=== PATIENT | female | born 2000 | race Caucasian/White ===

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

== ENCOUNTER 2020-08-30 01:28 | Inpatient (IN) | payer BC, MEDICAID ==
[2020-08-30] MEDS ORDERED: Lidocaine 1% 50 ML MDV INJECT PRN (02:34)
[2020-08-30] MEDS ORDERED: Sodium Chloride 0.9% 2.5 ML Syringe FLUSH PRN (02:34)
[2020-08-30] MEDS ORDERED: Tranexamic Acid 1,000 MG in Sodium Chloride 0.9% 100 ML IV PRN (02:34)
[2020-08-30] MEDS ORDERED: Sodium Chloride 0.9% 10 ML Syringe FLUSH PRN (02:34)
[2020-08-30] MEDS ORDERED: Carboprost Tromethamine 250 MCG/1 ML Amp IM PRN (02:34)
[2020-08-30] MEDS ORDERED: Butorphanol 1 MG/ML SDV IVPUSH PRN (02:34)
[2020-08-30] MEDS ORDERED: Water For Irrigation,Sterile 1,000 ML Container IRR PRN (02:34)
[2020-08-30] MEDS ORDERED: Methylergonovine 0.2 MG/1 ML Amp IM PRN (02:34)
[2020-08-30] MEDS ORDERED: Misoprostol 200 MCG Tab PO PRN (02:34)
[2020-08-30] MEDS ORDERED: Nalbuphine 10 MG/1 ML Vial IVPUSH PRN (02:34)
[2020-08-30] MEDS ORDERED: Sodium Chloride 0.9% 10 ML SDV IV PRN (02:34)
[2020-08-30] MEDS ORDERED: Oxytocin/0.9 % Sodium Chloride 30 UNIT/500 ML BAG IV SCH (02:45)
[2020-08-30] MEDS: Lactated Ringers 1,000 ML IV SCH ×3 (07:20→10:05)
--- NOTE | 2020-08-30 09:33 | PCM.PREANE ---
Preanesthetic Assessment - Procedure Proposed Procedure: Intrathecal analgesia. - Anesthesia/Transfusion/Family Hx Anesthesia History: Prior Anesthesia Without Reaction Family History of Anesthesia Reaction: No - Review of Systems General: No Symptoms Pulmonary: No Symptoms Cardiovascular: No Symptoms Gastrointestinal: No Symptoms Neurological: No Symptoms Other: Reports: Anxiety - Physical Assessment NPO Status Date: 08/30/20 NPO Status Time: 09:32 (Clear liquids) Height: 1.57 m Weight: 67.132 kg ASA Class: 2 Mental Status: Alert & Oriented x3 Airway Class: Mallampati = 1 Dentition: Reports: Normal Dentition ROM/Head Extension: Full Lungs: Clear to Auscultation Cardiovascular: Regular Rate - Lab Values: Laboratory Last Values WBC 10.01 K/uL (4.0-11.0) 08/30/20 02:14 RBC 4.76 M/uL (4.30-5.90) 08/30/20 02:14 Hgb 14.1 g/dL (12.0-16.0) 08/30/20 02:14 Hct 41.8 % (36.0-46.0) 08/30/20 02:14 MCV 87.8 fL (80.0-98.0) 08/30/20 02:14 MCH 29.6 pg (27.0-32.0) 08/30/20 02:14 MCHC 33.7 g/dL (31.0-37.0) 08/30/20 02:14 RDW Std Deviation 42.6 fl (28.0-62.0) 08/30/20 02:14 RDW Coeff of Eran 13 % (11.0-15.0) 08/30/20 02:14 Plt Count 286 K/uL (150-400) 08/30/20 02:14 MPV 10.50 fL (7.40-12.00) 08/30/20 02:14 Nucleated RBC % 0.0 /100WBC 08/30/20 02:14 Nucleated RBCs # 0 K/uL 08/30/20 02:14 SARS-CoV-2 RNA (EB) POSITIVE (NEGATIVE) H 08/30/20 02:18 Blood Type O POSITIVE 08/30/20 02:14 Antibody Screen NEGATIVE 08/30/20 02:14 - Allergies Allergies/Adverse Reactions: Allergies Allergy/AdvReac Type Severity Reaction Status Date / Time amoxicillin Allergy Rash Verified 05/21/19 16:30 ceftriaxone sodium Allergy Rash Verified 05/21/19 16:30 [From Rocephin] - Blood Blood Available: No Product(s) Available: None - Anesthesia Plan Pre-Op Medication Ordered: None - Acknowledgements Anesthesia Type Planned: Spinal Pt an Appropriate Candidate for the Planned Anesthesia: Yes Alternatives and Risks of Anesthesia Discussed w Pt/Guardian: Yes Pt/Guardian Understands and Agrees with Anesthesia Plan: Yes Additional Comments: Discussed. ? answered. Accepts. PreAnesthesia Questionnaire - Past Health History Medical/Surgical History: Denies Medical/Surgical History HEENT History: Reports: None Cardiovascular History: Reports: None Respiratory History: Reports: None Gastrointestinal History: Reports: None Genitourinary History: Reports: None ACCREDITATION MANAGER History: Reports: None Musculoskeletal History: Reports: None Neurological History: Reports: Head Trauma Psychiatric History: Reports: Depression, Suicide Attempt Endocrine/Metabolic History: Reports: None Hematologic History: Reports: None Immunologic History: Reports: None Oncologic (Cancer) History: Reports: None Dermatologic History: Reports: None - Infectious Disease History Infectious Disease History: Reports: Herpes - Past Surgical History Head Surgeries/Procedures: Reports: None HEENT Surgical History: Reports: Myringotomy w Tube(s) Cardiovascular Surgical History: Reports: None Respiratory Surgical History: Reports: None GI Surgical History: Reports: None Female Surgical History: Reports: None Endocrine Surgical History: Reports: None Neurological Surgical History: Reports: None Musculoskeletal Surgical History: Reports: None Oncologic Surgical History: Reports: None Dermatological Surgical History: Reports: None - HOME MEDS Home Medications: Home Meds methylPREDNISolone [Medrol] 4 mg PO ASDIRECTED #1 tab.ds.pk 05/21/19 [Rx] - CURRENT (IN HOUSE) MEDS Current Meds: Current Medications Butorphanol Tartrate (Stadol) 1 mg IVPUSH Q1H PRN PRN Reason: Pain Last Admin: 08/30/20 03:54 Dose: 1 mg Documented by: Carboprost Tromethamine (Hemabate Ds) 250 mcg IM ASDIRECTED PRN PRN Reason: Post Hemorrhage Oxytocin/Sodium Chloride (Oxytocin 30 Unit/500 Ml-Ns) 30 unit in 500 mls @ 999 mls/hr IV TITRATE DANIKA Tranexamic Acid 1,000 mg/ (Sodium Chloride) 110 mls @ 660 mls/hr IV ONETIME PRN PRN Reason: Bleeding Lactated Ringer's (Ringers, Lactated) 1,000 mls @ 150 mls/hr IV ASDIRECTED DANIKA Last Admin: 08/30/20 07:20 Dose: 150 mls/hr Documented by: Lidocaine HCl (Xylocaine 1%) 50 ml INJECT ONETIME PRN PRN Reason: Laceration repair Methylergonovine Maleate (Methergine) 0.2 mg IM ASDIRECTED PRN PRN Reason: Post Hemorrhage Misoprostol (Cytotec) 200 mcg PO ONETIME PRN PRN Reason: Post Hemorrhage Nalbuphine HCl (Nubain) 10 mg IVPUSH Q1H PRN PRN Reason: Pain (severe 7-10) Sodium Chloride (Saline Flush) 10 ml FLUSH ASDIRECTED PRN PRN Reason: Keep Vein Open Sodium Chloride (Saline Flush) 2.5 ml FLUSH ASDIRECTED PRN PRN Reason: Keep Vein Open Sodium Chloride (Normal Saline) 10 ml IV ASDIRECTED PRN PRN Reason: IV Use Sterile Water (Sterile Water For Irrigation) 1,000 ml IRR ASDIRECTED PRN PRN Reason: delivery
[2020-08-30] MEDS ORDERED: Sodium Chloride 0.9% 20 ML ONE (09:51)
--- NOTE | 2020-08-30 10:08 | PCM.SN.2 ---
- Free Text/Narrative Note: Called to LDR 2 for BP ~80/50. Ephidrine 10 mg IV. BP 99/. Repeated 5mg. BP 118/ Doing well. Dr Trujillo in room.
[2020-08-30] MEDS ORDERED: Ibuprofen 400 MG Tab PO PRN (10:51)
[2020-08-30] MEDS ORDERED: Ondansetron 4 MG/2 ML SDV IVPUSH PRN (10:51)
[2020-08-30] MEDS ORDERED: Acetaminophen 500 MG Tab PO PRN (10:51)
[2020-08-30] MEDS ORDERED: Bisacodyl 10 MG Supp RECTAL PRN (10:51)
[2020-08-30] MEDS ORDERED: oxyCODONE 5 MG Tab PO PRN (10:51)
[2020-08-30] MEDS ORDERED: Lanolin 100% Cream 7 GM Tube TOP PRN (10:51)
--- NOTE | 2020-08-30 11:00 | PCM.OPNOTE ---
- General Post-Op/Procedure Note Date of Surgery/Procedure: 08/30/20 Operative Procedure(s): Vaccuum assisted vaginal delivery/2nd MLE repaired Findings: Viable male APGARs 9, 9 weight 3380 gm. SPontaneous delivery intact placenta with 3V cord Pre Op Diagnosis: 41/2 week IUP. IOL for past due PG. Recurrent late decelerations. COVID + (asymptomatic) Post-Op Diagnosis: Same Anesthesia Technique: Spinal Primary Surgeon: Lizette Trujillo EBL in mLs: 400 Complications: none known Condition: Stable Free Text/Narrative:: Dictation [id number]
[2020-08-30] MEDS: Ibuprofen 800 MG Tab PO PRN ×2 (12:44→18:53)
[2020-08-30] MEDS: Docusate Sodium 100 MG Cap PO PRN (12:45)
[2020-08-30] MEDS: Witch Hazel Medicated Pads 40/Jar TOP PRN (12:46)
[2020-08-30] MEDS: Benzocaine/Menthol 20%-0.5% Spray 78 GM Cannister TOP PRN (12:47)
--- NOTE | 2020-08-30 14:06 | OR ---
SURGEON: Lizette Trujillo M.D. DATE OF PROCEDURE: 08/30/2020 PREOPERATIVE DIAGNOSES: 1. A 41-2/7 weeks' intrauterine . 2. Induction of labor for past due . 3. COVID positive, asymptomatic. 4. Recurrent late decelerations. POSTOPERATIVE DIAGNOSES: 1. A 41-2/7 weeks' intrauterine . 2. Induction of labor for past due . 3. COVID positive, asymptomatic. 4. Recurrent late decelerations. PROCEDURE: Vacuum-assisted vaginal delivery; second-degree midline episiotomy, repaired. PRIMARY SURGEON: Lizette Trujillo MD ANESTHESIA: Intrathecal. ESTIMATED BLOOD LOSS: 400 mL. COMPLICATIONS: None known. FINDINGS: Viable male. score of 9 at one minute and 9 at five minutes. Weight is 3380 g. Spontaneous delivery, intact placenta, 3-vessel cord. DISPOSITION: Infant to nursery, mom in LDRP in isolation. PROCEDURE IN DETAIL: Tati is a 20-year-old, G1, P0, who presented on 08/29/2020 for induction of labor for past due . I assumed care of the patient shortly after 9 a.m. on the morning of 08/30/2020. At that point, she had just undergone an intrathecal, had been 9.5 cm. Shortly thereafter, I was called by the attending nursing staff to say that the patient was complete and 0 station. However, they were starting to having recurrent late decelerations. Upon my arrival, Anesthesia was present and dosing the patient with ephedrine as she was hypotensive. With recovery of the blood pressure, the heart tones had less decelerations with a baseline in the 140s. The patient remained comfortable, and at this point on evaluation, she was found to be complete, 100% effaced, +2 station at ANKUR. The patient was placed in modified dorsal lithotomy position, prepped and draped in usual aseptic manner. Began pushing efforts. Pushed readily to a +3 station, but it was noted with the pushing efforts that she did continue to have late deceleration. The heart tones decelerated to the 50s to 60s between contractions. Therefore, given this finding, discussed with the patient and her significant other proceeding with an operative vaginal delivery versus C- section. Operative vaginal delivery was explained to them. They would opt for a vacuum-assisted vaginal delivery. The risks of this have been discussed with them including cephalhematoma for baby, intracranial bleeding, and increased risk for vaginal trauma for mother. They voiced understanding and agreed to proceed. Fetus was palpated to be approximately 3200 g. Once again, sagittal suture was able to palpated, fetus was felt to be ANKUR. Therefore, vacuum was utilized, was placed along the scalp. Once felt to be properly positioned, with next contraction insufflated to a pressure in the green zone, and with the next three contractions, was able to deliver to a +4 station. There was a single pop-off that occurred. At this point, was able to perform a second-degree episiotomy. The head was delivered followed by anterior shoulder, posterior shoulder, and remainder of the body without difficulty. 's oropharynx and nares were bulb suctioned. was handed off to his mother with attending nursing staff at her side. had good tone and was crying vigorously. After a delay, cord was clamped x2 and cut. Cord arterial, cord venous, cord blood sampling obtained. Light pressure was applied while the placenta was delivered spontaneously intact. Vigorous fundal uterine massage was then applied while 30 units of Pitocin was delivered in 500 mL of IV fluid. Upon inspection of cervix, vaginal sidewalls, and perineum, there was a second-degree midline episiotomy noted that had not extended. This was repaired using 3-0 Vicryl in the usual fashion. Hemostasis otherwise appeared evident. Uterus remained firm. Sponge, instrument, and needle count was correct. The patient will remain in LDRP and will remain in isolation since she is COVID positive as well as her partner. She is planning to breast feed. We talked about precautions with COVID and breast feeding. LANA / SO /[id number]
[2020-08-31] MEDS: Acetaminophen 500 MG Tab PO PRN ×2 (00:30→13:42)
[2020-08-31] MEDS: Ibuprofen 800 MG Tab PO PRN ×3 (02:29→14:46)
[2020-08-31 06:03] VITALS: PULSE 80
--- NOTE | 2020-08-31 09:00 | PCM.PNPP ---
- General Info Date of Service: 08/31/20 Functional Status: Reports: Pain Controlled, Tolerating Diet, Ambulating, Urinating - Review of Systems General: Denies: Fever, Weakness, Fatigue Pulmonary: Denies: Shortness of Breath Cardiovascular: Denies: Chest Pain, Palpitations, Lightheadedness Gastrointestinal: Denies: Abdominal Pain, Nausea, Vomiting Genitourinary: Denies: Flank Pain Skin: Reports: No Symptoms Neurological: Reports: No Symptoms Psychiatric: Reports: No Symptoms - General Info Date of Service: 08/31/20 - Patient Data Vital Signs - Most Recent: Last Vital Signs Temp 36.3 C 08/31/20 05:00 Pulse 80 08/31/20 05:00 Resp 17 08/31/20 05:00 BP 94/49 L 08/31/20 05:00 Pulse Ox 95 08/31/20 05:00 Weight - Most Recent: 67.132 kg Lab Results - Last 24 Hours: Laboratory Results - last 24 hr 08/30/20 08/31/20 Range/Units 10:30 05:45 Hgb 10.7 L (12.0-16.0) g/dL Hct 33.0 L (36.0-46.0) % Cord ABG pH 7.302 (7.18-7.38) Cord ABG Base Excess -12 L (-10--2) Cord VBG pH 7.220 L (7.25-7.45) Cord VBG Base Excess -10 (-10--2) Med Orders - Current: Current Medications Acetaminophen (Tylenol Extra Strength) 500 mg PO Q4H PRN PRN Reason: Pain Acetaminophen (Tylenol Extra Strength) 1,000 mg PO Q4H PRN PRN Reason: Pain Last Admin: 08/31/20 00:30 Dose: 1,000 mg Documented by: Benzocaine/Menthol (Dermoplast Pain Relief 20%-0.5% Meraux) 78 gm TOP ASDIRECTED PRN PRN Reason: Perineal Comfort Measure Last Admin: 08/30/20 12:47 Dose: 1 canister Documented by: Bisacodyl (Dulcolax) 10 mg RECTAL ONETIME PRN PRN Reason: Constipation Carboprost Tromethamine (Hemabate Ds) 250 mcg IM ASDIRECTED PRN PRN Reason: Post Hemorrhage Docusate Sodium (Colace) 100 mg PO BID PRN PRN Reason: Constipation Last Admin: 08/30/20 12:45 Dose: 100 mg Documented by: Emollient Ointment (Lansinoh Hpa) 0 gm TOP ASDIRECTED PRN PRN Reason: Sore Nipples Last Admin: 08/30/20 12:47 Dose: 7 g Documented by: Oxytocin/Sodium Chloride (Oxytocin 30 Unit/500 Ml-Ns) 30 unit in 500 mls @ 999 mls/hr IV TITRATE [facility] Last Infusion: 08/30/20 10:50 Dose: 500 mls/hr Documented by: Tranexamic Acid 1,000 mg/ (Sodium Chloride) 110 mls @ 660 mls/hr IV ONETIME PRN PRN Reason: Bleeding Lactated Ringer's (Ringers, Lactated) 1,000 mls @ 150 mls/hr IV ASDIRECTED [facility] Last Admin: 08/30/20 10:05 Dose: 999 mls/hr Documented by: Ibuprofen (Motrin) 400 mg PO Q4H PRN PRN Reason: Pain Ibuprofen (Motrin) 800 mg PO Q6H PRN PRN Reason: Pain Last Admin: 08/31/20 02:29 Dose: 800 mg Documented by: Lidocaine HCl (Xylocaine 1%) 50 ml INJECT ONETIME PRN PRN Reason: Laceration repair Methylergonovine Maleate (Methergine) 0.2 mg IM ASDIRECTED PRN PRN Reason: Post Hemorrhage Misoprostol (Cytotec) 200 mcg PO ONETIME PRN PRN Reason: Post Hemorrhage Nalbuphine HCl (Nubain) 10 mg IVPUSH Q1H PRN PRN Reason: Pain (severe 7-10) Ondansetron HCl (Zofran) 4 mg IVPUSH Q6H PRN PRN Reason: Nausea/Vomiting Oxycodone HCl (Oxycodone) 5 mg PO Q2H PRN PRN Reason: Pain Sodium Chloride (Saline Flush) 10 ml FLUSH ASDIRECTED PRN PRN Reason: Keep Vein Open Sodium Chloride (Saline Flush) 2.5 ml FLUSH ASDIRECTED PRN PRN Reason: Keep Vein Open Sodium Chloride (Normal Saline) 10 ml IV ASDIRECTED PRN PRN Reason: IV Use Sterile Water (Sterile Water For Irrigation) 1,000 ml IRR ASDIRECTED PRN PRN Reason: delivery Last Admin: 08/30/20 10:07 Dose: 1,000 ml Documented by: Balta Danielle ([facility]) 1 pad TOP ASDIRECTED PRN PRN Reason: comfort care Last Admin: 08/30/20 12:46 Dose: 1 tub Documented by: Discontinued Medications Butorphanol Tartrate (Stadol) 1 mg IVPUSH Q1H PRN PRN Reason: Pain Last Admin: 08/30/20 03:54 Dose: 1 mg Documented by: Sodium Chloride (Normal Saline) Confirm Administered Dose 20 mls @ as directed .ROUTE .STK-MED ONE Stop: 08/30/20 09:52 - Recovery Exam Fundal Tone: Firm Fundal Level: 1 Fingerbreadths Below Umbilicus Fundal Placement: Midline Lochia Amount: Scant Lochia Color: Rubra/Red Perineum Description: Edematous Episiotomy/Laceration: Approximated Bladder Status: Nonpalpable, Voiding Urinary Elimination: Voided - Exam General: Alert, Oriented Lungs: Normal Respiratory Effort Cardiovascular: Regular Rate, Regular Rhythm GI/Abdominal Exam: Normal Bowel Sounds, Soft Extremities: Pedal Edema. No: Edwin's Sign Skin: Warm, Dry, Intact Neurological: No New Focal Deficit Psy/Mental Status: Alert, Normal Affect, Normal Mood - Problem List & Annotations (1) Status post vacuum-assisted vaginal delivery SNOMED Code(s): 698567665, [id number] Code(s): Z87.59 - PERSONAL HISTORY OF COMP OF PREG, CHLDBRTH AND THE PUERP Status: Acute Current Visit: Yes - Problem List Review Problem List Initiated/Reviewed/Updated: Yes - My Orders Last 24 Hours: My Active Orders 08/30/20 10:51 Patient Status [ADT] Routine Cooling Warming Measures [RC] ASDIRECTED May Shower [RC] ASDIRECTED Notify Provider Vital Signs [RC] ASDIRECTED Up ad Ngozi [RC] ASDIRECTED Vital Signs [RC] PER UNIT ROUTINE Acetaminophen [Tylenol Extra Strength] 1,000 mg PO Q4H PRN Acetaminophen [Tylenol Extra Strength] 500 mg PO Q4H PRN Benzocaine/Menthol [Dermoplast Pain Relief 20%-0.5% Meraux] 78 gm TOP ASDIRECTED PRN Docusate Sodium [Colace] 100 mg PO BID PRN Ibuprofen [Motrin] 400 mg PO Q4H PRN Ibuprofen [Motrin] 800 mg PO Q6H PRN Lanolin [Lansinoh HPA] See Dose Instructions TOP ASDIRECTED PRN Ondansetron [Zofran] 4 mg IVPUSH Q6H PRN bisacodyL [Dulcolax] 10 mg RECTAL ONETIME PRN oxyCODONE 5 mg PO Q2H PRN witch Walker [Tucks] 1 pad TOP ASDIRECTED PRN Assess Lochia [WOMSER] Per Unit Routine Assess Uterine Involution [WOMSER] Per Unit Routine Ice Therapy [OM.PC] Per Unit Routine Perineal Care [OM.PC] Per Unit Routine Peripheral IV Discontinue [OM.PC] Routine 08/30/20 Lunch Guest Tray [DIET] Regular Diet [DIET] 08/31/20 08:57 Ready for Discharge [RC] PER UNIT ROUTINE - Assessment Assessment:: PPD 1 status post VAVD/2nd MLE repaired COVID + - Plan Plan:: Doing well overall, still asymptomatic from covid. Labs and VS are reassuring. Would like to go home today. Discharge instructions reviewed. Follow up at [facility] 4 weeks. Advised to rest, still well hydrated and contact precautions while given COVID. She will call with any concerns or questions.
[2020-08-31] MEDS: Docusate Sodium 100 MG Cap PO PRN (09:08)
[2020-08-31 09:11] VITALS: BP 109/56
--- NOTE | 2020-08-31 12:39 | PCM48HPAN ---
Post Anesthesia Note - EVALUATION WITHIN 48HRS OF ANESTHETIC Vital Signs in Normal Range: Yes Patient Participated in Evaluation: Yes Respiratory Function Stable: Yes Airway Patent: Yes Cardiovascular Function Stable: Yes Hydration Status Stable: Yes Pain Control Satisfactory: Yes Nausea and Vomiting Control Satisfactory: Yes Mental Status Recovered: Yes Vital Signs: Last Vital Signs Temp 36.8 C 08/31/20 09:10 Pulse 80 08/31/20 05:00 Resp 16 08/31/20 09:10 BP 109/56 L 08/31/20 09:10 Pulse Ox 97 08/31/20 09:10 - COMMENTS/OBSERVATIONS Free Text/Narrative:: Doing well.
[2020-08-31] MEDS: Benzocaine/Menthol 20%-0.5% Spray 78 GM Cannister TOP PRN (14:47)
[2020-08-31] MEDS: Witch Hazel Medicated Pads 40/Jar TOP PRN (14:47)
== END 2020-08-31 15:25 | disposition home or self-care (01) | DRG 805 ==
LOC: MW.OBCHECK 01:28 → MW.OB 01:33 → MW.OBCHECK 02:34 → MW.OB 02:34 → OBSVTOIN 10:51 → MW.OB 14:30
PROVIDERS: ADMIT Obstetrics & Gynecology; ATTEND Obstetrics & Gynecology
PROC: 10D07Z6 Extraction of Products of Conception, Vacuum, Via Natural or Artificial Opening (ICD-10-PCS; principal; 2020-08-30)
PROC: 0KQM0ZZ Repair Perineum Muscle, Open Approach (ICD-10-PCS; 2020-08-30)
PROC: 0W8NXZZ Division of Female Perineum, External Approach (ICD-10-PCS; 2020-08-30)
PROC: 3E0R3BZ Introduction of Anesthetic Agent into Spinal Canal, Percutaneous Approach (ICD-10-PCS; 2020-08-30)
DX: O48.0 Post-term pregnancy (principal); U07.1 COVID-19; Z37.0 Single live birth; O98.52 Other viral diseases complicating childbirth; O76 Abnormality in fetal heart rate and rhythm complicating labor and delivery; Z3A.41 41 weeks gestation of pregnancy
CPT/HCPCS: 01967; 36415; 59025; 59409; 82803; 85014; 85018; 85027; 86592; 86850; 86900; 86901; A9270-GY; J0595; J2590; J7120; U0002